=== PATIENT | female | born 1955 | race Caucasian/White ===

== ENCOUNTER 2017-04-03 12:36 | Emergency (ER) | payer OTHER ==
[~2017-04-03] VITALS: Ht 160 cm; Wt 55.5 kg
[~2017-04-03 12:36] MED LIST: CHOL10008 PO; SYN75 PO; VENL25TA4 PO
[2017-04-03 12:47] VITALS: BP 116/74; PULSE 67; RESP 15; O2SAT 98
[2017-04-03 13:05] LABS: BASOPHILS % (AUTO) 0.3 % (0-3); EOSINOPHILS % (AUTO) 0.8 % (0-5); MONOCYTES % (AUTO) 10.7 % (4-12); Mean Corpuscular Hemoglobin 29.7 pg (27.0-35.0); Mean Corpuscular Volume 88.7 fL (81-100); NEUTROPHILS % (AUTO) 47.4 % (40-74); Platelet Count 284 bil/L (150-400)
[2017-04-03 13:29] LABS: TROPONIN T < 0.010 ug/L (0.0-0.011)
[2017-04-03 13:39] LABS: Magnesium 2.1 mg/dL (1.6-2.6)
[2017-04-03 13:46] VITALS: BP 104/76; PULSE 74; RESP 18; O2SAT 99
--- NOTE | 2017-04-03 14:16 | ED.REPORT ---
HPI-General Illness Date of Service Apr 03, 2017 ED Provider: Jigar Jo MD Phyllis is an otherwise healthy 61-year-old female presenting to the emergency department from radiology where she experienced sudden onset of dizziness and nausea. Patient was undergoing an MRI of her ankle and she noted dizziness, nausea while reclining. After sitting up, symptoms worsened. Patient completed the study however afterwards felt quite unsteady on her feet, and expansive pins and needle sensation in bilateral hands to her shoulders and feet to her knees. At presentation, patient reports pins and needle sensation is receding, now only present to the wrists, dizziness remains. Denies headache , vision change, chest pain, shortness of breath, vomiting, abdominal pain, fever, shaking chills. Admits history of BPPV. Denies history of cardiac or pulmonary disease. Denies history of blood clots, leg swelling, exogenous estrogen, cancer, trauma or immobilization. Nursing Notes Stated Complaint: NAUSEA/DIZZY Chief Complaint: General Complaint Nursing Notes Reviewed: Yes Allergies: Coded Allergies: Sulfa (Sulfonamide Antibiotics) (Verified Allergy, Unknown, 04/03/17) Scheduled Levothyroxine (Synthroid) 75 Mcg Tablet 75 MCG PO DAILY Venlafaxine (Venlafaxine) 25 Mg Tablet 25 MG PO DAILY Scheduled PRN Diazepam (Valium) 5 Mg Tablet 5 MG PO TID PRN PRN For Dizziness Ondansetron ODT (Ondansetron ODT) 8 Mg Tab.rapdis 8 MG PO QID PRN PRN For Nausea Miscellaneous Medications Cholecalciferol (Vitamin D3) (Vitamin D3) 1,000 Unit Tab.chew 1,000 UNIT PO General Time Seen by MD: 14:15 Chief Complaint Dizziness Past Medical History Past Medical History Denies Smoking History Never Smoker Review of Systems Negative unless stated otherwise in history of present illness Physical Exam General: Well appearing, well developed, well nourished, no acute distress. Head: Atraumatic, normocephalic. No mastoid tenderness. Eyes: No scleral icterus or injection. No discharge. PERRL. Vision grossly intact. No deficits of peripheral vision. Mild, fatigable nystagmus at extremes of extraocular movement. Test of Skew is negative for vertigo or disconjugate gaze. Head impulse test reveals a corrective saccade. Ears: Pinna and tragus nontender with manipulation. External auditory canal patent, atraumatic and without discharge. Tympanic membrane griffin, shiny and translucent without fluid, bulging, retraction or perforation. Hearing grossly intact. Nose: Symmetrical, nares patent without discharge. No frontal or maxillary sinus tenderness. Mouth/pharynx: normal dentition, mucus membranes moist. Tonsils 2+ and symmetrical, uvula midline. Pharynx noninjected, no cobblestoning or discharge. Voice clear. Neck: No tenderness or lymphadenopathy. Trachea midline. Respiratory: Regular rate and rhythm. Breath sounds present, clear to auscultation and equal bilaterally. No respiratory distress. No increased work of breathing, speaks in complete sentences. Cardiovascular: Regular rate and rhythm, without murmur, gallop or rub. No pedal edema. Gastrointestinal: Abdomen flat and non-tender without guarding or rebound. Bowel sounds normoactive. Skin: Warm and dry. Neurological: Normal finger-nose, rapid hand, heel-fall. Negative pronator drift, leg drift. Sensation to sharp touch intact and equal over upper extremities and face. Dizziness is aggravated by sitting the patient up or reclining fully, then recedes slightly but does not resolve. Cranial nerves: Vision grossly intact, PERRL, EOMI. Facial motion symmetrical, sensation to light touch over forehead, maxilla and mandible present and equal B /L. Voice clear and fluent, no drooling/pooling of saliva, uvula rises midline. No deficits of peripheral vision. Psychological: Alert and oriented. Speech appropriate, linear and logical. Behavior appropriate. Vital Signs Vital Signs Date Time Temp Pulse Resp B/P Pulse Ox O2 Delivery O2 Flow Rate FiO2 04/03/17 19:50 36.8 76 16 116/72 98 Room Air 04/03/17 18:39 77 16 111/70 97 Room Air 04/03/17 17:19 71 17 104/62 99 Room Air 04/03/17 13:46 74 18 104/76 99 Room Air 04/03/17 12:47 67 15 116/74 98 Room Air Normal Interpretation & Diagnostics Interpretation & Diagnostics: PROCEDURE: MRI BRAIN WITHOUT CONTRAST ([id number]) INDICATIONS: vertigo IMPRESSION: 1. No MRI evidence of acute intracranial pathology. 2. Focus of increased T2 signal in the right centrum semiovale most consistent with chronic benign ischemic change. 3. Prominent cisterna magna. No evidence of Dandy-Walker malformation. Lab Results Interpretation Result Diagram: 04/03/17 1245 04/03/17 1435 Test 04/03/17 12:45 04/03/17 14:35 04/03/17 18:11 White Blood Count 6.1th/mm3 (3.8-10.1) Red Blood Count 4.71mil/mm3 (3.90-5.20) Hemoglobin 14.0g/dL (12.0-15.6) Hematocrit 41.8% (35.0-46.0) Mean Corpuscular Volume 88.7fL (81-100) Mean Corpuscular Hemoglobin 29.7pg (27.0-35.0) Mean Corpuscular Hemoglobin Concent 33.5% (32.0-37.0) Red Cell Distribution Width 13.1% (12.3-15.4) Platelet Count 284bil/L (150-400) Neutrophils (%) (Auto) 47.4% (40-74) Lymphocytes (%) (Auto) 40.3% (14-46) Monocytes (%) (Auto) 10.7% (4-12) Eosinophils (%) (Auto) 0.8% (0-5) Basophils (%) (Auto) 0.3% (0-3) Magnesium Level 2.1mg/dL (1.6-2.6) Troponin T < 0.010ug/L (0.0-0.011) Thyroid Stimulating Hormone (TSH) 6.610uIU/mL (0.450-4.500) Hold [place] Top Tube Received (Received) Sodium Level 139mEq/L (134-144) Potassium Level 4.4mEq/L (3.5-5.2) Chloride Level 104mEq/L (97-108) Carbon Dioxide Level 21mmol/L (18-29) Blood Urea Nitrogen 15mg/dL (6-24) Creatinine 0.47mg/dL (0.57-1.00) Estimat Glomerular Filtration Rate 194mL/min (>59) Glucose Level 96mg/dL (60-99) Calcium Level 8.3mg/dL (8.5-10.1) Total Bilirubin 0.3mg/dL (0.0-1.2) Aspartate Amino Transf (AST/SGOT) 22U/L (0-50) Alanine Aminotransferase (ALT/SGPT) 21U/L (0-32) Alkaline Phosphatase 58U/L (25-165) Total Protein 6.2g/dL (6.4-8.4) Albumin 3.8g/dL (3.4-5.0) Hold Urine Received (Received) Re-Eval/Medical Decision Med Decision/Clinical Course 61-year-old female, otherwise healthy presents the emergency department following a code team called to the MRI. Patient was reclining in a MRI performed on her ankle when she became dizzy, describing vertiginous symptoms. This is associated with nausea. Symptoms were aggravated by sitting up. Patient attempted to complete the study but afterwards had a severely unsteady gait, continued nausea, pins and needle sensation in bilateral extremities to the shoulders and knees. Patient since in the department. At presentation her symptoms have improved, with pins and needle sensation in her feet and hands, but continued dizziness, nausea. Physical examination reveals a normal neurological examination, NIH stroke scale is 0. Head impulse test is positive for a slight corrective saccade. Tested skew is negative for disconjugate gaze. Normal nystagmus is noted extremes of extraocular movement. Otherwise benign examination with normal vital signs. EKG is normal, CBC, CMP are unremarkable and troponin is negative. I am reassured against ACS. I have low concern for pulmonary embolus, I believe she is Wells criteria low risk, with a lack of shortness of breath or chest pain. I discussed the case with Dr. Jo, who evaluated and examined the patient. We agree this is most likely peripheral vertigo, however it is not a perfectly classic presentation. MRI is offered to the patient and his contacts and she elects to have one performed. This is negative. At this point we are reassured against a central cause of her vertigo believe this is most likely vestibular neuronitis or BPPV. We believe she is stable and safe to go home. Patient receives a total of 3 mg of Ativan in the department prior to MRI. Reports improvement in vertigo, however significantly sedated. After a period of observation, the patient is more alert but remains quite vertiginous, however wishes to be discharged to home. Her feels confident he can manage her at home. Provide ENT follow-up referral as well as a prescription for ondansetron, Valium. Provide emergency return precautions. Patient verbalizes understanding of and consent to the plan Discharge & Departure Primary Impression: Peripheral vertigo Laterality: unspecified laterality Qualified Code: H81.399 - Other peripheral vertigo, unspecified ear Disposition: Home Discharge Condition All VS Reviewed: Yes Condition: Stable Patient Instructions: Vertigo (ED) Additional Instructions: Evaluation for dizziness in the emergency department includes interview, physical examination, blood work, EKG and an MRI, all of which are reassuring that this is unlikely to be caused by an immediately dangerous condition. I believe this is peripheral vertigo, similar to what you have experienced before. I believe you are stable and safe for home. I will give you a referral to an ear nose and throat physician. Please contact them tomorrow to arrange to be seen as soon as possible for further assessment. I will also write you a prescription for Valium 5 mg to be taken up to 3 times a day as needed for dizziness. Return to emergency department for any new or worsening symptoms including sudden or severe headache, new neurologic symptoms such as weakness in the limb or difficulty speaking. Referrals: Nikko Nash MD EDSupervising Provider for APC: Jigar Jo MD Attending Statement I saw and evaluated the patient in conjunction with the PA. I agree with the plan and findings as documented above. In brief, 61-year-old female presenting to the ED for evaluation after having an apparent syncopal episode associated with vertiginous symptoms while in the MRI here earlier today. Well appearing, no acute distress. Nonlabored respirations. Good peripheral perfusion. RRR. No physical exam findings consistent with a central cause. Given reassuring exam and MRI above, plan discharge home w/ careful return precautions, close outpatient follow up. Patient agreeable to plan as stated, no further questions. copies to: Nikko Nash MD; Mian Soares MD, William B MD Apr 03, 2017 14:16 Farhad Murray PA-C Apr 03, 2017 15:58
[2017-04-03] MEDS ORDERED: 0.9% Sodium Chloride 1,000 ML IV ONE ×2 (15:05→16:15)
[2017-04-03 17:19] VITALS: BP 104/62; PULSE 71; RESP 17; O2SAT 99
--- NOTE | 2017-04-03 17:22 | DRSVH ---
PROCEDURE: MRI BRAIN WITHOUT CONTRAST ([id number]) INDICATIONS: vertigo TECHNIQUE: Noncontrast axial T1 spin echo, axial T2 fast spin echo, sagittal and axial FLAIR, coronal T2 fast sp in echo, axial gradient echo, axial diffusion and ADC through the brain. COMPARISON: [facility], MR, MR FOREFOOT RT W&WO CON, 04/03/2017, 11:24. [facility], MR, HIP LT W/ CONTRAST, 07/08/2014, 9:49. FINDINGS: Image quality: Excellent. CSF Spaces: Basal cisterns are patent. No extra-axial fluid collections. Ventricles are normal in size and shape. Prominent cisterna magna. Intact cerebellar vermis. Brain: No intracranial masses or hemorrhage. Chen/white matter interface is normal. Brainstem appe ars normal. Diffusion-weighted images demonstrate no acute ischemic insult. Normal intravascular fl ow voids are present. There is a focus of increased T2 signal in the right centrum semiovale most co nsistent with chronic benign ischemic change. Skull and face: Calvarium has normal marrow signal. Orbits appear normal. Sinuses: Sinuses and mastoids are clear. IMPRESSION: 1. No MRI evidence of acute intracranial pathology. 2. Focus of increased T2 signal in the right centrum semiovale most consistent with chronic benign is chemic change. 3. Prominent cisterna magna. No evidence of Dandy-Walker malformation. Dictated by: Doug Yi M.D. on 04/03/2017 at 17:15 Approved by: Doug Yi M.D. on 04/03/2017 at 17:20
[2017-04-03] MEDS ORDERED: DIAZ5TAB PO (18:07)
[2017-04-03 18:39] VITALS: BP 111/70; PULSE 77; RESP 16; O2SAT 97
[2017-04-03] MEDS ORDERED: ONDA8TAB10 PO (19:33)
[2017-04-03 19:50] VITALS: BP 116/72; PULSE 76; RESP 16; O2SAT 98
== END 2017-04-03 19:50 | disposition home or self-care (01) ==
LOC: SED 12:36
DX: H81.399 Other peripheral vertigo, unspecified ear (principal); Z88.2 Allergy status to sulfonamides
CPT/HCPCS: 36415; 70551; 80053; 82948; 83735; 84443; 84484; 85025; 93005; 96361; 96374; 99285; J2060; J7030